=== PATIENT | female | born 2000 | race Two or more races ===

== ENCOUNTER 2019-07-15 12:07 | Emergency (ER) | payer SELFPAY ==
[~2019-07-15] VITALS: Ht 154.9 cm; Wt 49.9 kg
[2019-07-15 13:35] VITALS: BP 137/91
== END 2019-07-15 14:51 | disposition home or self-care (01) ==
LOC: ER 12:14
DX: J02.9 Acute pharyngitis, unspecified (principal); J06.9 Acute upper respiratory infection, unspecified

== ENCOUNTER 2019-07-22 14:32 | Emergency (ER) | payer SELFPAY ==
[~2019-07-22] VITALS: Ht 154.9 cm; Wt 49.9 kg
[2019-07-22 15:07] VITALS: BP 136/93
== END 2019-07-22 16:12 | disposition home or self-care (01) ==
LOC: ER 14:38
DX: R11.2 Nausea with vomiting, unspecified (principal); T50.905A Adverse effect of unspecified drugs, medicaments and biological substances, initial encounter; Y92.89 Other specified places as the place of occurrence of the external cause